=== PATIENT | male | born 1995 | race Caucasian/White ===

== ENCOUNTER 2018-06-15 14:03 | Inpatient (IN) | payer OTHER ==
[2018-06-15 15:34] VITALS: BMI 22.9
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
[2018-06-15] MEDS ORDERED: LOPERAMIDE HCL 2 MG CAPSULE PO PRN (17:36)
[2018-06-15] MEDS ORDERED: MAG HYDROX/AL HYDROX/SIMETH 30 ML UNIT-DOSE CUP PO PRN (17:36)
[2018-06-15] MEDS ORDERED: IBUPROFEN 400 MG TABLET (FP) PO PRN (17:36)
[2018-06-15] MEDS ORDERED: MAGNESIUM CITRATE 300 ML BOTTLE PO PRN (17:36)
[2018-06-15] MEDS ORDERED: NICOTINE POLACRILEX 4 MG GUM BC PRN (17:36)
[2018-06-15] MEDS ORDERED: MAGNESIUM HYDROX 2400MG/30ML ORAL SUSPENSION 30 ML CUP PO PRN (17:36)
[2018-06-15] MEDS ORDERED: MENTHOL/PHENOL 1 EACH UD MM PRN (17:36)
[2018-06-15] MEDS ORDERED: diazePAM 5 MG TABLET PO ONE (18:45)
[2018-06-15] MEDS ORDERED: METHADONE HCL 10 MG TABLET (FOR DETOX USE ONLY) PO ONE ×2 (18:45→23:00)
[2018-06-15] MEDS ORDERED: MELATONIN 5 MG TABLETS PO PRN (22:00)
[2018-06-15] MEDS: diazePAM 5 MG TABLET PO SCH (22:53)
[2018-06-15] MEDS: THIAMINE HCL 100 MG TABLET (FP) PO SCH (22:54)
[2018-06-16] MEDS: diazePAM 5 MG TABLET PO SCH ×3 (05:35→22:47)
[2018-06-16] MEDS ORDERED: METHADONE HCL 10 MG TABLET (FOR DETOX USE ONLY) PO SCH (10:00)
[2018-06-16] MEDS: NICOTINE 21 MG/24 HOURS TOPICAL PATCH TD SCH (10:26)
[2018-06-16] MEDS: PRENATAL VITAMINS W/ FOLIC ACID TABLET (FP) PO SCH (10:26)
[2018-06-16] MEDS: diazePAM 5 MG TABLET PO PRN ×2 (10:26→17:57)
[2018-06-16 10:35] LABS: HEMATOCRIT 41.5 % (35.4-49); HEMOGLOBIN 13.5 GM/dL (11.7-16.9); MCH 28.8 pg (25.7-33.7); MCHC 32.5 g/dl (32.0-35.9); MEAN CELL VOLUME 88.8 fl (80-96); MEAN PLT VOLUME 8.1 fl (7.5-11.1); PLATELET COUNT 183 K/MM3 (134-434); RBC 4.68 M/mm3 (4.00-5.60); RDW 14.1 % (11.9-15.9); WHITE BLOOD COUNT 9.2 K/mm3 (4.0-10.0)
[2018-06-16 11:18] LABS: ALBUMIN 3.2 g/dl (3.4-5.0); ALK PHOS 100 U/L (45-117); ANION GAP 9 MMOL/L (8-16); BILIRUBIN,TOTAL 0.2 mg/dL (0.2-1); BLOOD UREA NITROGEN 12 mg/dL (7-18); CALCIUM 8.3 mg/dL (8.5-10.1); CHLORIDE 110 mmol/L (98-107); CO2 25 mmol/L (21-32); CREATININE 0.6 mg/dL (0.55-1.3); GLUCOSE,RANDOM 86 mg/dL (74-106); POTASSIUM 4.1 mmol/L (3.5-5.1); SGOT/AST 93 U/L (15-37); SGPT/ALT 169 U/L (13-61); SODIUM 144 mmol/L (136-145); TOT PROT 6.6 g/dl (6.4-8.2)
[2018-06-16] MEDS: hydrOXYzine PAMOATE 25 MG CAPSULE (FP) PO PRN (12:52)
--- NOTE | 2018-06-16 14:42 | PN ---
[facility] CIWA - CIWA Score Nausea/Vomitin-No Nausea/No Vomiting Muscle Tremors: 3 Anxiety: 3 Agitation: 3 Paroxysmal Sweats: 2 Orientation: 0-Oriented Tacttile Disturbances: 0-None Auditory Disturbances: 0-None Visual Disturbances: 0-None Headache: 0-None Present CIWA-Ar Total Score: 11 S COWS - Scale Resting Pulse: 0= [place] 80 or Below Sweatin=Flushed/Facial Moisture Restless Observation: 1= Difficult to Sit Still Pupil Size: 2= Moderately Dilated Bone or Joint Aches: 2= Severe Diffuse Aches Runny Nose/ Eye Tearin= None GI Upset > 30mins: 0= None Tremor Observation of Outstretched Hands: 2= Slight Tremor Visible Yawning Observation: 0= None Anxiety or Irritability: 2=Irritable/Anxious Goose Flesh Skin: 0=Smooth Skin COWS Score: 11 [facility] Progress Note (SOAP) Subjective: PATIENT ANXIETY/RESTLESSNESS, SWEATING AND SHAKES. Objective: 06/16/18 14:41 Vital Signs Temperature 98.2 F 06/16/18 13:54 Pulse Rate 99 H 06/16/18 13:54 Respiratory Rate 18 06/16/18 13:54 Blood Pressure 124/66 06/16/18 13:54 O2 Sat by Pulse Oximetry (%) Laboratory Tests 06/16/18 06/16/18 07:00 07:00 WBC 9.2 RBC 4.68 Hgb 13.5 Hct 41.5 MCV 88.8 MCH 28.8 MCHC 32.5 RDW 14.1 Plt Count 183 MPV 8.1 Sodium 144 Potassium 4.1 Chloride 110 H Carbon Dioxide 25 Anion Gap 9 BUN 12 Creatinine 0.6 Creat Clearance w eGFR > 60 Random Glucose 86 Calcium 8.3 L Total Bilirubin 0.2 AST 93 H ALT 169 H Alkaline Phosphatase 100 Total Protein 6.6 Albumin 3.2 L PE: SKIN MOIST, +FLUSHING ALERT AND ORIENTED X 3 EXT FULL ROM, +TREMORS AMB AB EDDIE ANXIOUS/PACING IN HALLWAY Assessment: 06/16/18 14:41 WITHDRAWAL SX Plan: CONTINUE DETOX ENCOURAGE ORAL FLUIDS CONTINUE TO MONITOR
[2018-06-16] MEDS ORDERED: CYCLOBENZAPRINE HCL 10 MG TABLET (FP) PO PRN (14:43)
[2018-06-16] MEDS: ACETAMINOPHEN 325 MG TABLET (FP) PO PRN (17:57)
[2018-06-16 21:21] LABS: URINE APPEARANCE TURBID; URINE BILIRUBIN NEGATIVE (<2.0 mg/dL); URINE COLOR YELLOW; URINE GLUCOSE (UA) NEGATIVE (NEGATIVE); URINE KETONE NEGATIVE (NEGATIVE); URINE LEUK ESTERASE NEGATIVE (NEGATIVE); URINE NITRITE NEGATIVE (NEGATIVE); URINE PROTEIN NEGATIVE (NEGATIVE)
[2018-06-16] MEDS: THIAMINE HCL 100 MG TABLET (FP) PO SCH (22:47)
[2018-06-17] MEDS: diazePAM 5 MG TABLET PO PRN ×2 (02:02→15:10)
[2018-06-17] MEDS: ACETAMINOPHEN 325 MG TABLET (FP) PO PRN (02:03)
[2018-06-17] MEDS: METHADONE HCL 5 MG TABLET (FOR DETOX USE ONLY) PO SCH (10:35)
[2018-06-17] MEDS: PRENATAL VITAMINS W/ FOLIC ACID TABLET (FP) PO SCH (10:35)
[2018-06-17] MEDS: NICOTINE 21 MG/24 HOURS TOPICAL PATCH TD SCH (10:35)
[2018-06-17] MEDS: diazePAM 5 MG TABLET PO SCH ×2 (10:35→22:31)
--- NOTE | 2018-06-17 11:44 | PN ---
S CIWA - CIWA Score Nausea/Vomitin-Mild Nausea/No Vomiting Muscle Tremors: 4-Moderate,w/Arms Extend Anxiety: 1-Mildly Anxious Agitation: 0-Normal Activity Paroxysmal Sweats: 1-Minimal Palms Moist Orientation: 0-Oriented Tacttile Disturbances: 0-None Auditory Disturbances: 0-None Visual Disturbances: 0-None Headache: 0-None Present CIWA-Ar Total Score: 7 [facility] COWS - Scale Resting Pulse: 1= [place] 81-100 Sweatin=Flushed/Facial Moisture Restless Observation: 0= Sits Still Pupil Size: 0= Normal to Room Light Bone or Joint Aches: 1= Mild Discomfort Runny Nose/ Eye Tearin= None GI Upset > 30mins: 2= Nausea/Diarrhea (No diarrhea) Tremor Observation of Outstretched Hands: 2= Slight Tremor Visible Yawning Observation: 0= None Anxiety or Irritability: 1=Feels Anxious/Irritable Goose Flesh Skin: 0=Smooth Skin COWS Score: 9 S Progress Note (SOAP) Subjective: C/o nausea. Denies vomiting or diarrhea. C/o aches in legs and back. States feels tremors. Objective: A&O x 3. Abd S/NT. Mild tremors of hands when arms are extended. Respirations unlabored. Vital Signs 06/17/18 06/17/18 06:00 10:34 Temperature 97.7 F 99.0 F Pulse Rate 62 85 Respiratory 18 18 Rate Blood Pressure 130/72 118/64 Laboratory Last Values WBC 9.2 K/mm3 (4.0-10.0) 06/16/18 07:00 RBC 4.68 M/mm3 (4.00-5.60) 06/16/18 07:00 Hgb 13.5 GM/dL (11.7-16.9) 06/16/18 07:00 Hct 41.5 % (35.4-49) 06/16/18 07:00 MCV 88.8 fl (80-96) 06/16/18 07:00 MCH 28.8 pg (25.7-33.7) 06/16/18 07:00 MCHC 32.5 g/dl (32.0-35.9) 06/16/18 07:00 RDW 14.1 % (11.9-15.9) 06/16/18 07:00 Plt Count 183 K/MM3 (134-434) 06/16/18 07:00 MPV 8.1 fl (7.5-11.1) 06/16/18 07:00 Sodium 144 mmol/L (136-145) 06/16/18 07:00 Potassium 4.1 mmol/L (3.5-5.1) 06/16/18 07:00 Chloride 110 mmol/L (98-107) H 06/16/18 07:00 Carbon Dioxide 25 mmol/L (21-32) 06/16/18 07:00 Anion Gap 9 MMOL/L (8-16) 06/16/18 07:00 BUN 12 mg/dL (7-18) 06/16/18 07:00 Creatinine 0.6 mg/dL (0.55-1.3) 06/16/18 07:00 Creat Clearance w eGFR > 60 (>60) 06/16/18 07:00 Random Glucose 86 mg/dL (74-106) 06/16/18 07:00 Calcium 8.3 mg/dL (8.5-10.1) L 06/16/18 07:00 Total Bilirubin 0.2 mg/dL (0.2-1) 06/16/18 07:00 AST 93 U/L (15-37) H 06/16/18 07:00 ALT 169 U/L (13-61) H 06/16/18 07:00 Alkaline Phosphatase 100 U/L (45-117) 06/16/18 07:00 Total Protein 6.6 g/dl (6.4-8.2) 06/16/18 07:00 Albumin 3.2 g/dl (3.4-5.0) L 06/16/18 07:00 Urine Color Yellow 06/15/18 23:20 Urine Appearance Turbid 06/15/18 23:20 Urine pH 5.0 (5.0-8.0) 06/15/18 23:20 Ur Specific [place] 1.031 (1.010-1.035) 06/15/18 23:20 Urine Protein Negative (NEGATIVE) 06/15/18 23:20 Urine Glucose (UA) Negative (NEGATIVE) 06/15/18 23:20 Urine Ketones Negative (NEGATIVE) 06/15/18 23:20 Urine Blood Negative (NEGATIVE) 06/15/18 23:20 Urine Nitrite Negative (NEGATIVE) 06/15/18 23:20 Urine Bilirubin Negative (<2.0 mg/dL) 06/15/18 23:20 Urine Urobilinogen 2.0 mg/dL (0.2-1.0) 06/15/18 23:20 Ur Leukocyte Esterase Negative (NEGATIVE) 06/15/18 23:20 Labs reviewed. Assessment: Withdrawal symptoms. Plan: Continue detox. Encourage water intake.
[2018-06-17] MEDS: hydrOXYzine PAMOATE 25 MG CAPSULE (FP) PO PRN (17:46)
[2018-06-17] MEDS: THIAMINE HCL 100 MG TABLET (FP) PO SCH (22:31)
[2018-06-18] MEDS: PRENATAL VITAMINS W/ FOLIC ACID TABLET (FP) PO SCH (10:31)
[2018-06-18] MEDS: METHADONE HCL 5 MG TABLET (FOR DETOX USE ONLY) PO SCH (10:32)
[2018-06-18] MEDS: diazePAM 5 MG TABLET PO SCH ×2 (10:32→22:16)
[2018-06-18] MEDS: NICOTINE 21 MG/24 HOURS TOPICAL PATCH TD SCH (10:32)
--- NOTE | 2018-06-18 13:34 | PN ---
[facility] Progress Note (SOAP) Subjective: tremor sweat restlessness muscle cramp gi distress Objective: 06/18/18 13:33 Vital Signs Temperature 97.7 F 06/18/18 10:23 Pulse Rate 93 H 06/18/18 10:23 Respiratory Rate 18 06/18/18 10:23 Blood Pressure 140/75 06/18/18 10:23 O2 Sat by Pulse Oximetry (%) Laboratory Last Values WBC 9.2 K/mm3 (4.0-10.0) 06/16/18 07:00 RBC 4.68 M/mm3 (4.00-5.60) 06/16/18 07:00 Hgb 13.5 GM/dL (11.7-16.9) 06/16/18 07:00 Hct 41.5 % (35.4-49) 06/16/18 07:00 MCV 88.8 fl (80-96) 06/16/18 07:00 MCH 28.8 pg (25.7-33.7) 06/16/18 07:00 MCHC 32.5 g/dl (32.0-35.9) 06/16/18 07:00 RDW 14.1 % (11.9-15.9) 06/16/18 07:00 Plt Count 183 K/MM3 (134-434) 06/16/18 07:00 MPV 8.1 fl (7.5-11.1) 06/16/18 07:00 Sodium 144 mmol/L (136-145) 06/16/18 07:00 Potassium 4.1 mmol/L (3.5-5.1) 06/16/18 07:00 Chloride 110 mmol/L (98-107) H 06/16/18 07:00 Carbon Dioxide 25 mmol/L (21-32) 06/16/18 07:00 Anion Gap 9 MMOL/L (8-16) 06/16/18 07:00 BUN 12 mg/dL (7-18) 06/16/18 07:00 Creatinine 0.6 mg/dL (0.55-1.3) 06/16/18 07:00 Creat Clearance w eGFR > 60 (>60) 06/16/18 07:00 Random Glucose 86 mg/dL (74-106) 06/16/18 07:00 Calcium 8.3 mg/dL (8.5-10.1) L 06/16/18 07:00 Total Bilirubin 0.2 mg/dL (0.2-1) 06/16/18 07:00 AST 93 U/L (15-37) H 06/16/18 07:00 ALT 169 U/L (13-61) H 06/16/18 07:00 Alkaline Phosphatase 100 U/L (45-117) 06/16/18 07:00 Total Protein 6.6 g/dl (6.4-8.2) 06/16/18 07:00 Albumin 3.2 g/dl (3.4-5.0) L 06/16/18 07:00 Urine Color Yellow 06/15/18 23:20 Urine Appearance Turbid 06/15/18 23:20 Urine pH 5.0 (5.0-8.0) 06/15/18 23:20 Ur Specific [place] 1.031 (1.010-1.035) 06/15/18 23:20 Urine Protein Negative (NEGATIVE) 06/15/18 23:20 Urine Glucose (UA) Negative (NEGATIVE) 06/15/18 23:20 Urine Ketones Negative (NEGATIVE) 06/15/18 23:20 Urine Blood Negative (NEGATIVE) 06/15/18 23:20 Urine Nitrite Negative (NEGATIVE) 06/15/18 23:20 Urine Bilirubin Negative (<2.0 mg/dL) 06/15/18 23:20 Urine Urobilinogen 2.0 mg/dL (0.2-1.0) 06/15/18 23:20 Ur Leukocyte Esterase Negative (NEGATIVE) 06/15/18 23:20 RPR Titer Nonreactive (NONREACTIVE) 06/16/18 07:00 lab noted Assessment: 06/18/18 13:33 withdrawal sx Plan: continue detox
[2018-06-18] MEDS: diazePAM 5 MG TABLET PO PRN (13:39)
[2018-06-18] MEDS: hydrOXYzine PAMOATE 25 MG CAPSULE (FP) PO PRN (22:16)
[2018-06-18] MEDS: THIAMINE HCL 100 MG TABLET (FP) PO SCH (22:16)
[2018-06-19] MEDS ORDERED: METHADONE HCL 10 MG TABLET (FOR DETOX USE ONLY) PO SCH (10:00)
[2018-06-19] MEDS ORDERED: diazePAM 5 MG TABLET PO SCH (10:00)
[2018-06-19] MEDS: NICOTINE 21 MG/24 HOURS TOPICAL PATCH TD SCH (10:34)
[2018-06-19] MEDS: PRENATAL VITAMINS W/ FOLIC ACID TABLET (FP) PO SCH (10:34)
--- NOTE | 2018-06-19 11:44 | PN ---
S Progress Note (SOAP) Subjective: feeling better no tremor no body ache no gi distress mild sweat Objective: 06/19/18 11:43 Vital Signs Temperature 99.1 F 06/19/18 09:05 Pulse Rate 90 06/19/18 09:05 Respiratory Rate 17 06/19/18 09:05 Blood Pressure 113/60 06/19/18 09:05 O2 Sat by Pulse Oximetry (%) Laboratory Last Values WBC 9.2 K/mm3 (4.0-10.0) 06/16/18 07:00 RBC 4.68 M/mm3 (4.00-5.60) 06/16/18 07:00 Hgb 13.5 GM/dL (11.7-16.9) 06/16/18 07:00 Hct 41.5 % (35.4-49) 06/16/18 07:00 MCV 88.8 fl (80-96) 06/16/18 07:00 MCH 28.8 pg (25.7-33.7) 06/16/18 07:00 MCHC 32.5 g/dl (32.0-35.9) 06/16/18 07:00 RDW 14.1 % (11.9-15.9) 06/16/18 07:00 Plt Count 183 K/MM3 (134-434) 06/16/18 07:00 MPV 8.1 fl (7.5-11.1) 06/16/18 07:00 Sodium 144 mmol/L (136-145) 06/16/18 07:00 Potassium 4.1 mmol/L (3.5-5.1) 06/16/18 07:00 Chloride 110 mmol/L (98-107) H 06/16/18 07:00 Carbon Dioxide 25 mmol/L (21-32) 06/16/18 07:00 Anion Gap 9 MMOL/L (8-16) 06/16/18 07:00 BUN 12 mg/dL (7-18) 06/16/18 07:00 Creatinine 0.6 mg/dL (0.55-1.3) 06/16/18 07:00 Creat Clearance w eGFR > 60 (>60) 06/16/18 07:00 Random Glucose 86 mg/dL (74-106) 06/16/18 07:00 Calcium 8.3 mg/dL (8.5-10.1) L 06/16/18 07:00 Total Bilirubin 0.2 mg/dL (0.2-1) 06/16/18 07:00 AST 93 U/L (15-37) H 06/16/18 07:00 ALT 169 U/L (13-61) H 06/16/18 07:00 Alkaline Phosphatase 100 U/L (45-117) 06/16/18 07:00 Total Protein 6.6 g/dl (6.4-8.2) 06/16/18 07:00 Albumin 3.2 g/dl (3.4-5.0) L 06/16/18 07:00 Urine Color Yellow 06/15/18 23:20 Urine Appearance Turbid 06/15/18 23:20 Urine pH 5.0 (5.0-8.0) 06/15/18 23:20 Ur Specific [place] 1.031 (1.010-1.035) 06/15/18 23:20 Urine Protein Negative (NEGATIVE) 06/15/18 23:20 Urine Glucose (UA) Negative (NEGATIVE) 06/15/18 23:20 Urine Ketones Negative (NEGATIVE) 06/15/18 23:20 Urine Blood Negative (NEGATIVE) 06/15/18 23:20 Urine Nitrite Negative (NEGATIVE) 06/15/18 23:20 Urine Bilirubin Negative (<2.0 mg/dL) 06/15/18 23:20 Urine Urobilinogen 2.0 mg/dL (0.2-1.0) 06/15/18 23:20 Ur Leukocyte Esterase Negative (NEGATIVE) 06/15/18 23:20 RPR Titer Nonreactive (NONREACTIVE) 06/16/18 07:00 lab noted Assessment: 06/19/18 11:43 mild withdrawal sx Plan: medically supervised detox
[2018-06-19] MEDS ORDERED: diazePAM 5 MG TABLET PO ONE (19:19)
[2018-06-19] MEDS: THIAMINE HCL 100 MG TABLET (FP) PO SCH (22:06)
[2018-06-19] MEDS: hydrOXYzine PAMOATE 25 MG CAPSULE (FP) PO PRN (22:07)
[2018-06-20] MEDS ORDERED: METHADONE HCL 5 MG TABLET (FOR DETOX USE ONLY) PO SCH (06:00)
[2018-06-20 07:54] VITALS: TEMP 97.9
[2018-06-20 09:09] VITALS: BP 144/72; PULSE 94
--- NOTE | 2018-06-20 10:38 | DS ---
[facility] Detox Discharge Summary Admission Date: 06/15/18 Discharge Date: 06/20/18 - History Present History: Alcohol Dependence, Opioid Dependence, Sedative Dependence Additional Comments: 22 years old male admitted on 06/15/18 for alcohol benzo opiate detox completed detox regimen tolerated well alert oriented x 3 no acute distress aftercare revelation - Physical Exam Results Vital Signs: Vital Signs Temperature 97.9 F 06/20/18 09:09 Pulse Rate 94 H 06/20/18 09:09 Respiratory Rate 18 06/20/18 09:09 Blood Pressure 144/72 06/20/18 09:09 O2 Sat by Pulse Oximetry (%) Pertinent Admission Physical Exam Findings: alcohol benzo and opiate withdrawal sx Vital Signs Temperature 97.9 F 06/20/18 09:09 Pulse Rate 94 H 06/20/18 09:09 Respiratory Rate 18 06/20/18 09:09 Blood Pressure 144/72 06/20/18 09:09 O2 Sat by Pulse Oximetry (%) Laboratory Last Values WBC 9.2 K/mm3 (4.0-10.0) 06/16/18 07:00 RBC 4.68 M/mm3 (4.00-5.60) 06/16/18 07:00 Hgb 13.5 GM/dL (11.7-16.9) 06/16/18 07:00 Hct 41.5 % (35.4-49) 06/16/18 07:00 MCV 88.8 fl (80-96) 06/16/18 07:00 MCH 28.8 pg (25.7-33.7) 06/16/18 07:00 MCHC 32.5 g/dl (32.0-35.9) 06/16/18 07:00 RDW 14.1 % (11.9-15.9) 06/16/18 07:00 Plt Count 183 K/MM3 (134-434) 06/16/18 07:00 MPV 8.1 fl (7.5-11.1) 06/16/18 07:00 Sodium 144 mmol/L (136-145) 06/16/18 07:00 Potassium 4.1 mmol/L (3.5-5.1) 06/16/18 07:00 Chloride 110 mmol/L (98-107) H 06/16/18 07:00 Carbon Dioxide 25 mmol/L (21-32) 06/16/18 07:00 Anion Gap 9 MMOL/L (8-16) 06/16/18 07:00 BUN 12 mg/dL (7-18) 06/16/18 07:00 Creatinine 0.6 mg/dL (0.55-1.3) 06/16/18 07:00 Creat Clearance w eGFR > 60 (>60) 06/16/18 07:00 Random Glucose 86 mg/dL (74-106) 06/16/18 07:00 Calcium 8.3 mg/dL (8.5-10.1) L 06/16/18 07:00 Total Bilirubin 0.2 mg/dL (0.2-1) 06/16/18 07:00 AST 93 U/L (15-37) H 06/16/18 07:00 ALT 169 U/L (13-61) H 06/16/18 07:00 Alkaline Phosphatase 100 U/L (45-117) 06/16/18 07:00 Total Protein 6.6 g/dl (6.4-8.2) 06/16/18 07:00 Albumin 3.2 g/dl (3.4-5.0) L 06/16/18 07:00 Urine Color Yellow 06/15/18 23:20 Urine Appearance Turbid 06/15/18 23:20 Urine pH 5.0 (5.0-8.0) 06/15/18 23:20 Ur Specific [place] 1.031 (1.010-1.035) 06/15/18 23:20 Urine Protein Negative (NEGATIVE) 06/15/18 23:20 Urine Glucose (UA) Negative (NEGATIVE) 06/15/18 23:20 Urine Ketones Negative (NEGATIVE) 06/15/18 23:20 Urine Blood Negative (NEGATIVE) 06/15/18 23:20 Urine Nitrite Negative (NEGATIVE) 06/15/18 23:20 Urine Bilirubin Negative (<2.0 mg/dL) 06/15/18 23:20 Urine Urobilinogen 2.0 mg/dL (0.2-1.0) 06/15/18 23:20 Ur Leukocyte Esterase Negative (NEGATIVE) 06/15/18 23:20 RPR Titer Nonreactive (NONREACTIVE) 06/16/18 07:00 lab noted - Treatment Hospital Course: Detox Protocol Followed, Detoxed Safely, Responded well, Discharged Condition Good, Rehab Referral Accepted Patient has Accepted a Rehab Referral to: [facility] - Medication Discharge Medications: Ambulatory Orders NK [No Known Home Medication] 06/15/18 - Diagnosis (1) Alcohol dependence with uncomplicated withdrawal Current Visit: Yes Status: Acute (2) Nicotine dependence, uncomplicated Current Visit: Yes Status: Acute Qualifiers: Nicotine product type: cigarettes Qualified Code(s): F17.210 - Nicotine dependence, cigarettes, uncomplicated (3) Opioid dependence with withdrawal Current Visit: Yes Status: Acute (4) Sedative, hypnotic or anxiolytic dependence with withdrawal, uncomplicated Current Visit: Yes Status: Acute - AMA Did Patient Leave Against Medical Advice: No
== END 2018-06-20 09:15 | disposition home or self-care (01) | DRG 773 ==
LOC: YASAS 14:03 → Y6N 18:20
PROC: HZ2ZZZZ Detoxification Services for Substance Abuse Treatment (ICD-10-PCS; principal; 2018-06-15)
DX: F11.23 Opioid dependence with withdrawal (principal); F13.230 Sedative, hypnotic or anxiolytic dependence with withdrawal, uncomplicated; F10.230 Alcohol dependence with withdrawal, uncomplicated; F12.20 Cannabis dependence, uncomplicated; F17.210 Nicotine dependence, cigarettes, uncomplicated; G47.00 Insomnia, unspecified; G40.909 Epilepsy, unspecified, not intractable, without status epilepticus; M89.8X9 Other specified disorders of bone, unspecified site; Z89.429 Acquired absence of other toe(s), unspecified side; Z87.820 Personal history of traumatic brain injury; Z98.890 Other specified postprocedural states
CPT/HCPCS: 36415; 80053; 81003; 85027; 86593